=== PATIENT | male | born 1975 | race Two or more races ===

== ENCOUNTER 2019-05-08 13:52 | Observation (INO) | payer OTHER | END 2019-05-09 14:44 | disposition home or self-care (01) | LOC: F3E 20:10 ==

== ENCOUNTER → 2019-05-12 | Outpatient (CLI) | payer OTHER | LOC: FIMAGING 17:06 ==

== ENCOUNTER → 2019-05-22 | Outpatient (CLI) | payer OTHER | LOC: FIMAGING 16:18 ==